=== PATIENT | female | born 1960 | race Caucasian/White ===

== ENCOUNTER → 2016-10-20 | Outpatient (CLI) | payer BC ==
[~2016-10-20] MED LIST: AMIN500T PO; ASCO-297 PO; ASPI81TA84 PO; BEE POLLEN; BIOT1TAB6 PO; Co Q 10; FERR1TAB25 PO; LEVO250C5 PO; LYSI500C PO; MELA1TAB10 PO; MSM; MULTIVITAMIN PO; PRAS25CA5 PO; ST JOHN S WORT; TAUR500C2 PO; VITA1CAP52 PO; Vitamin E PO; [UNRECOGNIZED DRUG - CODE] PO; [UNRECOGNIZED DRUG - OTHER]; [UNRECOGNIZED DRUG - OTHER]; [UNRECOGNIZED DRUG - OTHER]; [UNRECOGNIZED DRUG - OTHER]
--- NOTE | 2016-10-20 14:15 | DI ---
Indication: ITS.REASON: N95.1 MENOP SYMP;N85.2 ENLARGED UTERUS;N88.2 STENOSIS OF CERVIX PROCEDURE: US PELVIC NON OB W/TRANS VAG: Encounter: Initial Comparison: None FINDINGS: Transvaginal and transabdominal pelvic imaging was performed. The uterus is enlarged and measures 12.3 x 6.1 x 7.4 cm. The parenchyma is heterogeneous with multiple fibroids. 3.1 x 2.8 x 3.1 cm myometrial fibroid in the posterior fundus. Larger 4.7 x 3.3 x 3.4 cm subserosal fibroid anteriorly. Additional 1.9 x 1.5 x 1.8 cm fibroid lower uterine segment. The endometrial stripe measures 11 mm in thickness. There is no evidence of focal endometrial mass. Both ovaries are identified and normal in appearance. The right ovary measures 2.9 x 3.2 x 2 cm. The left ovary measures 3.3 x 2.6 x 2 cm. There are no abnormal adnexal masses detected. IMPRESSION: Uterine fibroids. .
== END ==
LOC: IMA 12:36
PROVIDERS: ATTEND Family Medicine
DX: N95.1 Menopausal and female climacteric states (principal); D25.1 Intramural leiomyoma of uterus; D25.2 Subserosal leiomyoma of uterus; N85.2 Hypertrophy of uterus